=== PATIENT | male | born 1985 | race Caucasian/White ===

== ENCOUNTER 2023-07-25 19:21 | Emergency (ER) | payer SELFPAY ==
[2023-07-25] MEDS ORDERED: diphenhydrAMINE 50 MG/ML SDV IVPUSH ONE (19:49)
[2023-07-25] MEDS ORDERED: Ketorolac 30 MG/ML SDV IVPUSH ONE (19:49)
[2023-07-25] MEDS ORDERED: Sodium Chloride 0.9% 10 ML Syringe FLUSH PRN (19:49)
[2023-07-25] MEDS ORDERED: Sodium Chloride 0.9% 1,000 ML IV SCH (20:00)
[2023-07-25 20:33] LABS: BLOOD UREA NITROGEN,BUN 23 mg/dL (7-18); BUN/CREATININE RATIO 19.2 (9-20); CALCIUM 9.3 mg/dL (8.6-10.2); CARBON DIOXIDE,CO2 27 mmol/L (21-32); CHLORIDE,CL 102 mmol/L (100-110); CREATININE 1.2 mg/dL (0.70-1.30); ESTIMATED GFR 79 mL/min (>60); GLUCOSE RANDOM 105 mg/dL (80-116); SODIUM,NA 138 mmol/L (135-145)
[2023-07-25 20:34] LABS: BASOPHILS PERCENT AUTO 0.4 % (0.3-3.8); EOSINOPHILS ABSOLUTE AUTO 0.2 x10-3/uL (0.0-0.6); EOSINOPHILS PERCENT AUTO 2.2 % (0.1-6.8); HEMATOCRIT 47.4 % (38.3-50.1); HEMOGLOBIN 16.5 g/dL (12.9-17.7); LYMPHOCYTES ABSOLUTE AUTO 1.8 x10-3/uL (0.5-4.5); LYMPHOCYTES PERCENT AUTO 19.5 % (15.8-45.3); MEAN CORPUSCULAR HGB CONC 34.7 g/dL (28.7-35.3); MEAN CORPUSCULAR VOLUME 83.5 fL (80.8-98.7); MEAN PLATELET VOLUME 7.2 fL (6.7-11.0); MONOCYTES ABSOLUTE AUTO 0.6 x10-3/uL (0.0-1.2); MONOCYTES PERCENT AUTO 7.1 % (5.5-15.2); NEUTROPHILS ABSOLUTE AUTO 6.4 x10-3/uL (1.7-6.9); NEUTROPHILS PERCENT AUTO 70.8 % (40.3-71.8); PLATELET COUNT,PLT 268 x10(3)uL (117-477); RED BLOOD CELL COUNT 5.68 x10(6)uL (3.90-5.90); RED CELL DISTRIBUTION WIDTH 13.6 % (12.4-15.0)
== END 2023-07-25 21:48 | disposition home or self-care (01) ==
LOC: FB.ED 19:21
DX: G43.909 Migraine, unspecified, not intractable, without status migrainosus (principal); Z88.8 Allergy status to other drugs, medicaments and biological substances
CPT/HCPCS: 80048; 85025; 96361; 96374; 96375; 99283; 99284-25; J1200; J1885; J3490; J7030